=== PATIENT | female | born 1950 | race Caucasian/White ===

== ENCOUNTER → 2016-12-06 | Outpatient (CLI) | payer MEDICARE, OTHER ==
--- NOTE | 2016-12-06 13:01 | CT ---
EXAMINATION TYPE: CT iac wo/w con DATE OF EXAM: 12/06/2016 COMPARISON: CT brain May 11, 2015 HISTORY: Patient complains of inability to taste or smell x2 months. Anosmia. CT DLP: 300 mGycm. Automated Exposure Control for Dose Reduction was Utilized. TECHNIQUE: CT scan of the pituitary gland is performed without and with IV contrast, thin cut axial i mages are obtained, coronal reformatted images are also reviewed. Patient is injected with 100 cc of Omnipaque 300 for the study. FINDINGS: Pituitary gland does not appear suspiciously enlarged in the sella turcica. No suprasellar extension is identified. Pituitary stalk show satisfactory enhancement in the midline seen best coron al image 74. Fairly homogeneous enhancement is noted on CT images. Optic chiasm is not effaced. Adjac ent carotid vessels are patent. Visualized brain parenchyma is unremarkable. Visualized globes are intact bilaterally. Visualized par anasal sinuses show patchy opacification dependently in right maxillary sinus otherwise are clear. Mi ld mucosal thickening inferiorly in bilateral maxillary sinuses is noted. Visualized mastoid air cell s show no suspicious opacification. IMPRESSION: No CT evidence for pituitary macroadenoma or convincing evidence for microadenoma(limitat ions ct vs mri). Incidental acute right maxillary sinus disease is noted.
== END | disposition home or self-care (01) ==
LOC: RADCTMAIN 11:44
PROVIDERS: ATTEND Otolaryngology
DX: R43.0 Anosmia (principal)
CPT/HCPCS: 70482; Q9967

== ENCOUNTER 2018-02-12 10:34 | Day surgery (SDC) | payer MEDICARE, OTHER ==
[2018-02-11 08:44] VITALS: BMI 27.9
[~2018-02-12 10:34] MED LIST: LACTATED RINGERS 1,000 ML IV SCH; LIDOCAINE 1% 20 ML VIAL (10MG/ML) FOR IV START INTRADERMA PRN
[2018-02-12 10:54] VITALS: TEMP 99.2
[2018-02-12] MEDS ORDERED: LACTATED RINGERS 1,000 ML IV ONE (10:55)
[2018-02-12] MEDS ORDERED: ONDANSETRON 4 MG/2 ML VIAL IVP ONE (10:58)
[2018-02-12] MEDS ORDERED: PROPOFOL 10 MG/ML 20 ML VIAL IV ONE (11:23)
--- NOTE | 2018-02-12 12:11 | P.PCN ---
Date of Procedure: 02/12/18 Procedure(s) Performed: Procedure: Total colonoscopy with biopsy. Preoperative diagnosis: Change in bowel habits and history of polyps. Postoperative diagnosis: 1. Diminutive polyp in the rectum biopsied but no large polyps or cancer. 2. No obvious evidence of diverticular disease or inflammatory bowel disease. Preparation: HalfLytely prep. Sedation: Was provided by anesthesia. Brief clinical history: The patient is a 67-year-old female who is scheduled for this evaluation because of recent change in bowel habits. The patient reports difficulty having a bowel movement for several days around the time that she started following a fasting-type diet. The patient has history of polyps and she had colonoscopies in the past, the last could have been around 5 years ago. There is also history of of complicated diverticular disease and she had segmental resection in the sigmoid in the past. Procedure: With the patient on her left lateral decubitus position and after informed consent and adequate sedation, the perianal area was inspected and it did not show any fissures or fistulas. There were no masses felt on digital rectal examination. The Olympus CFQ 160L video colonoscope was then inserted in the rectum in the usual fashion and advanced to the cecum. I intubated the ileocecal valve and examined the terminal ileum as well as. Terminal ileum and colon appeared healthy with no edema, erythema, friability, ulceration, exudation or spontaneous bleeding. There was a diminutive polyp in the rectum which I biopsied but there were no large polyps or cancer. No obvious diverticular disease or other pathology. I retroflexed the endoscope in the rectum before the endoscope was withdrawn. The patient tolerated the procedure well. Plan: The patient was reassured. Discussed dietary measures. She will follow- up with you as planned and I recommended repeat exam in 5 years.
[2018-02-12 12:24] VITALS: BP 119/76; PULSE 65; RESP 16
== END 2018-02-12 13:01 | disposition home or self-care (01) ==
LOC: ORWHC2ENDO 10:34
DX: D12.8 Benign neoplasm of rectum (principal); Z86.010 Personal history of colon polyps; G47.33 Obstructive sleep apnea (adult) (pediatric); K57.92 Diverticulitis of intestine, part unspecified, without perforation or abscess without bleeding; Z86.73 Personal history of transient ischemic attack (TIA), and cerebral infarction without residual deficits; Z79.82 Long term (current) use of aspirin; Z79.899 Other long term (current) drug therapy; Z88.1 Allergy status to other antibiotic agents; Z88.0 Allergy status to penicillin; Z88.8 Allergy status to other drugs, medicaments and biological substances
CPT/HCPCS: 88305; 45380; J2405; J2704

== ENCOUNTER 2018-07-22 10:43 | Day surgery (SDC) | payer MEDICARE, OTHER ==
[2018-07-18 15:49] VITALS: BMI 27.2
[~2018-07-22 10:43] MED LIST changes: -LIDOCAINE 1% 20 ML VIAL (10MG/ML) FOR IV START INTRADERMA PRN
[2018-07-22 11:27] VITALS: RESP 18; TEMP 98.5
[2018-07-22] MEDS ORDERED: LIDOCAINE 1% 20 ML VIAL (10MG/ML) FOR IV START INTRADERMA ONE (11:34)
[2018-07-22] MEDS ORDERED: ONDANSETRON 4 MG/2 ML VIAL IVP ONE (12:02)
[2018-07-22] MEDS ORDERED: PROPOFOL 10 MG/ML 20 ML VIAL IV ONE (12:44)
--- NOTE | 2018-07-22 13:08 | P.PCN ---
Date of Procedure: 07/22/18 Procedure(s) Performed: Procedure: Esophagogastroduodenoscopy and biopsy. Preoperative diagnosis: Epigastric pain. Postoperative diagnosis: 1. Sliding hiatal hernia with no definite esophagitis or complicated reflux disease. 2. Mild antral gastritis. 3. Biopsies obtained from the duodenum, antrum and esophagus. Preparation and sedation: Was provided by anesthesia. Brief clinical history: The patient is a 67-year-old female who was evaluated in the office last month regarding burning upper abdominal pain that started the day after Keysha. She apparently had 5 beers with her grandson Keysha Vallecillo. The patient denied any nausea, vomiting. The pain was doubling her up e very time she eats. She lost 7 pounds. Tums and omeprazole did not help. This evaluation is to assess for peptic ulcer disease or other pathology. Procedure: With the patient on her left lateral decubitus position and after informed consent and adequate sedation, I passed the Olympus-GIF 01/16/1990 video upper endoscope through the cricopharyngeus down the esophagus. GE junction was around 36 cm from the incisors and there was a small sliding hiatal hernia but no obvious esophagitis or complicated reflux disease. The endoscope was then passed into the stomach which was insufflated with air and inspected in detail including the retroflex view in the cardia. There was mottling, erythema, and friability in the prepyloric area but no ulcers, erosions or gastric outlet obstruction. Pyloric channel, duodenal bulb, post bulbar area and descending duodenum appeared within normal limits. I obtained biopsies from the duodenum, antrum and esophagus then the endoscope was withdrawn. The patient tolerated the procedure well. Plan: The patient was reassured. Will await biopsy results and make further plans based on her course and biopsy results. We will keep you updated on her progress.
[2018-07-22 13:29] VITALS: BP 123/72; PULSE 63
== END 2018-07-22 14:04 | disposition home or self-care (01) ==
LOC: ORWHC2ENDO 10:43
DX: K29.50 Unspecified chronic gastritis without bleeding (principal); K44.9 Diaphragmatic hernia without obstruction or gangrene; I10 Essential (primary) hypertension; G47.33 Obstructive sleep apnea (adult) (pediatric); Z91.09 Other allergy status, other than to drugs and biological substances; Z79.899 Other long term (current) drug therapy
CPT/HCPCS: 88305; 43239; J2405; J2704

== ENCOUNTER 2020-07-09 09:44 | Day surgery (SDC) | payer MEDICARE ==
[2020-07-07 10:21] VITALS: BMI 29.5
[~2020-07-09 09:44] MED LIST changes: +LIDOCAINE 1% (10MG/ML) FOR IV START INTRADERMA PRN
[2020-07-09 10:22] VITALS: TEMP 98.6
[2020-07-09] MEDS ORDERED: ONDANSETRON 4 MG/2 ML VIAL ONE (10:48)
[2020-07-09] MEDS ORDERED: ONDANSETRON 4 MG/2 ML VIAL IVP ONE (10:51)
[2020-07-09] MEDS ORDERED: LIDOCAINE 1% INJ 10MG/ML (20 ML MDV) ONE (11:55)
[2020-07-09] MEDS ORDERED: PROPOFOL 10 MG/ML 20 ML VIAL IV ONE (11:55)
--- NOTE | 2020-07-09 12:06 | P.PCN ---
Date of Procedure: 07/09/20 Procedure(s) Performed: BRIEF HISTORY: Patient is a 69-year-old, pleasant, white female, scheduled for an upper endoscopy as a part of evaluation of intermittent dysphagia to solids for the last 6 months duration. PROCEDURE PERFORMED: Esophagogastroduodenoscopy with biopsy. . PREOPERATIVE DIAGNOSIS: intermittent dysphagia to solids of 6 months duration Intermittent dysphagia to solids of 6 months duration sedation per anesthesia. PROCEDURE: After informed consent was obtained, the patient was brought into the endoscopy unit. IV sedation was administered by Anesthesia under continuous monitoring. Initially the Olympus GIF-140 video endoscope was inserted into the mouth. Esophagus intubated without any difficulty. It was gradually advanced into the stomach and duodenum and carefully examined. The bulb and the second part of the duodenum appeared normal. The scope at this time was withdrawn to the stomach, adequately insufflated with air, and upon careful examination, mucosa of the antrum, had mild gastritis and biopsies were done from this area. There was a small gastric polyps noted in the distal body the stomach which were also biopsied. Rest of the body, cardia and the fundus appeared normal. The scope was then withdrawn into the esophagus. sliding type hiatal hernia noted. The GE junction was located at 39 cm from the incisors. The esophagus appeared normal. There were no erosions or ulcerations seen . No evidence of esophageal stricture or Schatzki's ring identified. Biopsies were done from the distal esophagusand the patient tolerated the procedure well. IMPRESSION: 1. Mild antral gastritis all gastric polyp in the distal body the stomach. 2. Small hiatal hernia but no evidence of esophagitis or esophageal stricture. RECOMMENDATIONS: The findings of this examination were discussed with the patient as well as a family. She was advised to follow with the biopsy results. She will be seen in office in 3-4 weeks..
[2020-07-09 12:29] VITALS: BP 150/71; PULSE 70; RESP 20
== END 2020-07-09 12:38 | disposition home or self-care (01) ==
LOC: ORWHC2ENDO 09:44
PROVIDERS: ATTEND Internal Medicine Gastroenterology
DX: K29.60 Other gastritis without bleeding (principal); K20.90 Esophagitis, unspecified without bleeding; K31.7 Polyp of stomach and duodenum; K44.9 Diaphragmatic hernia without obstruction or gangrene; K08.409 Partial loss of teeth, unspecified cause, unspecified class; G47.33 Obstructive sleep apnea (adult) (pediatric); M35.00 Sjogren syndrome, unspecified; Z88.0 Allergy status to penicillin; Z88.1 Allergy status to other antibiotic agents; Z88.5 Allergy status to narcotic agent; Z88.8 Allergy status to other drugs, medicaments and biological substances; Z88.2 Allergy status to sulfonamides; Z79.899 Other long term (current) drug therapy; Z86.79 Personal history of other diseases of the circulatory system; Z91.89 Other specified personal risk factors, not elsewhere classified
CPT/HCPCS: 88305; 43239; J2405; J2001; J2704

== ENCOUNTER → 2020-08-04 | Outpatient (CLI) | payer MEDICARE | END | disposition home or self-care (01) | LOC: LABWHC1 16:08 | PROVIDERS: ATTEND Family Medicine | DX: M79.18 Myalgia, other site (principal); R68.83 Chills (without fever) | CPT/HCPCS: 87502; U0003; C9803 ==

== ENCOUNTER → 2020-11-05 | Outpatient (CLI) | payer MEDICARE ==
--- NOTE | 2020-11-08 11:00 | MM ---
Reason for exam: screening (asymptomatic). Last mammogram was performed 1 year and 4 months ago. History: Patient is postmenopausal. Benign right breast needle localzation of the right breast, June 06, 2011. Benign right breast needle localization ad of the right breast, June 06, 2011. Reductions of both breasts. Took hormonal contraceptives for 1 year. Physical Findings: A clinical breast exam by your physician is recommended on an annual basis and results should be correlated with mammographic findings. MG 3D Screening Mammo W/Cad Bilateral CC and MLO view(s) were taken. Prior study comparison: June 26, 2019, bilateral MG 3d screening mammo w/cad. May 08, 2017, mammogram, performed at [facility]. There are scattered fibroglandular densities. Finding: Architectural distortion in the right breast consistent with known excisional changes. There is no discrete abnormality. ASSESSMENT: Negative, BI-RAD 1 RECOMMENDATION: Routine screening mammogram of both breasts in 1 year.
== END | disposition home or self-care (01) ==
LOC: RADMAMWWP 09:48
PROVIDERS: ATTEND Family Medicine
DX: Z12.31 Encounter for screening mammogram for malignant neoplasm of breast (principal); Z78.0 Asymptomatic menopausal state
CPT/HCPCS: 77063; 77067

== ENCOUNTER → 2021-07-28 | Outpatient (CLI) | payer MEDICARE ==
[2021-07-28 15:03] LABS: ALT 10 U/L (8-44); AST 18 U/L (13-35); LDL Cholesterol,Calculated 100.6 mg/dL (0.0-131.0)
[2021-07-28 15:04] LABS: HCT 38.6 % (37.2-46.3); HGB 12.5 g/dL (12.0-15.0); MCH 32.6 pg (27.0-32.0); MCHC 32.4 g/dL (32.0-37.0); MCV 100.8 fL (80.0-97.0); Mean Platelet Volume 10.7 fL (9.5-12.2); NRBC Per 100 WBC 0 /100 WBCS (0.0-0.0); Platelet Count 210 X 10*3/uL (140-440); RBC 3.83 X 10*6/uL (4.10-5.20); RDW 12.8 % (11.5-14.5); WBC 5.68 X 10*3/uL (4.50-10.00)
[2021-07-29 01:45] LABS: African American GFR (CKD) 108.5 (60.0-200.0); Anion Gap 19.6 mmol/L (10.00-18.00); BUN/Creat Ratio 15.5 Ratio (12.00-20.00); Blood Urea Nitrogen 9.3 mg/dL (9.0-27.0); Calcium 9.3 mg/dL (8.7-10.3); Carbon Dioxide 18.4 mmol/L (20.0-27.5); Non-African American GFR(CKD) 93.7 (60.0-200.0); Potassium 4.1 mmol/L (3.5-5.5)
== END | disposition home or self-care (01) ==
LOC: LABWHC1 09:31
PROVIDERS: ATTEND Nurse Practitioner Family
DX: E78.2 Mixed hyperlipidemia (principal); R00.2 Palpitations
CPT/HCPCS: 36415; 80048; 80061; 84443; 84450; 84460; 85027

== ENCOUNTER → 2021-09-13 | Outpatient (CLI) | payer MEDICARE ==
[2021-09-14 14:10] LABS: Coronavirus SARS CoV-2 Detected (Not Detected)
== END | disposition home or self-care (01) ==
LOC: LABWHC1 13:55
PROVIDERS: ATTEND Family Medicine
DX: R50.9 Fever, unspecified (principal)
CPT/HCPCS: U0003; C9803

== ENCOUNTER → 2021-09-16 | Outpatient (CLI) | payer MEDICARE ==
[~2021-09-16] MED LIST changes: +BEBTELOVIMAB (EUA) 175 MG/2 ML VIAL IV ONE; -LACTATED RINGERS 1,000 ML IV SCH; -LIDOCAINE 1% (10MG/ML) FOR IV START INTRADERMA PRN; +SODIUM CHLORIDE 0.9% 500 ML 500 ML in EMPTY BAG 1 BAG IV PRN
[2021-09-16 13:29] VITALS: TEMP 98.2
[2021-09-16 14:34] VITALS: BP 121/77; PULSE 62; RESP 16
== END | disposition home or self-care (01) ==
LOC: PROCWHC3 13:19
PROVIDERS: ATTEND Family Medicine
DX: U07.1 COVID-19 (principal)
CPT/HCPCS: 96361; 96374; Q0222; M0245

== ENCOUNTER → 2021-11-07 | Outpatient (CLI) | payer MEDICARE ==
--- NOTE | 2021-11-08 19:07 | MM ---
Reason for Exam: Screening (asymptomatic). Last screening mammogram was performed 12 month(s) ago. Patient History: Menarche at age 15. First Full-Term at age 23. Left ovary removed at age 42. Right ovary removed at age 42. Hysterectomy at age 42. Postmenopausal. Bilateral Reduction. 06/06/2011, Benign Excisional Biopsy on the right side. 06/06/2011, Benign Excisional Biopsy on the right side. Risk Values: Ruby 5 year model risk: 2.3%. NCI Lifetime model risk: 7.4%. Film Views: Bilateral CC views were taken. Bilateral MLO views were taken. Prior Study Comparison: 05/08/2017 Screening Mammogram, [facility]. 06/26/2019 Bilateral Screening Mammogram, [facility]. 11/05/2020 Bilateral Screening Mammogram, [facility]. Tissue Density: The breast tissue is heterogeneously dense. This may lower the sensitivity of mammography. Findings: Analyzed By CAD. Multiple asymmetric density in the left breast especially on the MLO view remain unchanged especially when the posterior densities are compared to the 2019 exam. No significant change from prior exams. Overall Assessment: Benign, BI-RAD 2 Management: Screening Mammogram of both breasts in 1 year. A clinical breast exam by your physician is recommended on an annual basis and results should be correlated with mammographic findings. Also, the patient should continue monthly self breast exams. Electronically signed and approved by: Martin Taylor M.D. Radiologist
== END | disposition home or self-care (01) ==
LOC: RADMAMWWP 07:49
PROVIDERS: ATTEND Family Medicine
DX: Z12.31 Encounter for screening mammogram for malignant neoplasm of breast (principal)
CPT/HCPCS: 77063; 77067

== ENCOUNTER → 2022-11-29 | Outpatient (CLI) | payer MEDICARE ==
--- NOTE | 2022-11-30 08:40 | MM ---
Reason for Exam: Screening (asymptomatic). Last mammogram was performed 1 year(s) and 1 month(s) ago. Patient History: Menarche at age 15. First Full-Term at age 23. Left ovary removed at age 42. Right ovary removed at age 42. Hysterectomy at age 42. Postmenopausal. Bilateral Reduction. 06/06/2011, Benign Excisional Biopsy on the right side. 06/06/2011, Benign Excisional Biopsy on the right side. Sister had ovarian cancer under age 50. Risk Values: Ruby 5 year model risk: 2.3%. NCI Lifetime model risk: 6.7%. Prior Study Comparison: 04/11/2016 Screening Mammogram, [facility]. 05/08/2017 Screening Mammogram, [facility]. 06/26/2019 Bilateral Screening Mammogram, [facility]. 11/05/2020 Bilateral Screening Mammogram, [facility]. 11/07/2021 Bilateral MG 3D screening mammo w/cad, [facility]. Tissue Density: The breast tissue is heterogeneously dense. This may lower the sensitivity of mammography. Findings: Analyzed By CAD. There is no suspicious group of microcalcifications or new suspicious mass in either breast. Benign calcifications within the left breast. Stable multiple asymmetric densities within the left breast. Overall Assessment: Benign, BI-RAD 2 Management: Screening Mammogram of both breasts in 1 year. A clinical breast exam by your physician is recommended on an annual basis and results should be correlated with mammographic findings. Note on Ruby scores and lifetime risk: 1. A Ruby score greater than 3% is considered moderate risk. If this is the case, consider specialist referral to assess eligibility for a risk reducing agent. If overall lifetime risk for the development of breast cancer is 20% or higher, the patient may qualify for future screening with alternating mammogram and breast MRI. Electronically signed and approved by: Moses Harris D.O.
== END | disposition home or self-care (01) ==
LOC: RADMAMWWP 13:34
PROVIDERS: ATTEND Internal Medicine
DX: Z12.31 Encounter for screening mammogram for malignant neoplasm of breast (principal); Z78.0 Asymptomatic menopausal state; Z80.41 Family history of malignant neoplasm of ovary
CPT/HCPCS: 77063; 77067

== ENCOUNTER → 2023-01-30 | Outpatient (CLI) | payer MEDICARE ==
[2023-01-30 15:46] LABS: African American GFR (CKD) >90 (>60 ml/min/1.73 sqM); Blood Urea Nitrogen 12 mg/dL (7-17); Non-African American GFR(CKD) 90 (>60 ml/min/1.73 sqM)
--- NOTE | 2023-01-30 17:11 | CT ---
EXAMINATION TYPE: CT chest w con CT DLP: 355.6 mGycm, Automated exposure control for dose reduction was used. DATE OF EXAM: 01/30/2023 4:33 PM COMPARISON: CT chest 08/11/2013 CLINICAL INDICATION:Female, 72 years old with history of M35.09 SJOGREN SYNDROME WITH OTHER ORGAN INV OLVEME; PHH, SJOGREN SYNDROME TECHNIQUE: Multiple axial images were obtained through the chest following the administration of 100 cc of Isovue 300. . Coronal and sagittal reformats reviewed. FINDINGS: LUNGS/ PLEURA: No pleural effusion, pneumothorax, focal consolidation. No suspicious pulmonary nodule or mass. AIRWAY: Patent and unremarkable.. HEART: Size within normal limits. No pericardial effusion. MEDIASTINUM: No gross evidence of adenopathy. VASCULATURE: No aortic aneurysm. MUSCULOSKELETAL: No acute osseous abnormalities. Multilevel Schmorl's nodes. Mild right shoulder arth ropathy. SOFT TISSUES/LYMPH NODES: Unremarkable. LOWER NECK: No significant findings. UPPER ABDOMEN: Postcholecystectomy changes. IMPRESSION: No acute thoracic process. No evidence of pulmonary nodule or mass.
== END | disposition home or self-care (01) ==
LOC: RADCTMAIN 14:56
PROVIDERS: ATTEND Internal Medicine
DX: M35.09 Sjogren syndrome with other organ involvement (principal)
CPT/HCPCS: 82565; 84520; 71260; 36415; Q9967

== ENCOUNTER 2023-02-21 10:35 | Day surgery (SDC) | payer MEDICARE ==
[~2023-02-21 10:35] MED LIST changes: -BEBTELOVIMAB (EUA) 175 MG/2 ML VIAL IV ONE; +LACTATED RINGERS 1,000 ML IV SCH; +LIDOCAINE 1% (10MG/ML) FOR IV START INTRADERMA PRN; -SODIUM CHLORIDE 0.9% 500 ML 500 ML in EMPTY BAG 1 BAG IV PRN
[2023-02-21] MEDS ORDERED: LACTATED RINGERS 1,000 ML IV ONE (11:09)
[2023-02-21 11:16] VITALS: TEMP 97.8
[2023-02-21] MEDS ORDERED: ONDANSETRON 4 MG/2 ML VIAL IVP ONE (11:33)
[2023-02-21] MEDS ORDERED: LIDOCAINE 2% INJ 20 MG/ML (2 ML VIAL) ONE (12:15)
[2023-02-21] MEDS ORDERED: PROPOFOL 10 MG/ML 20 ML VIAL IV ONE (12:15)
--- NOTE | 2023-02-21 12:29 | P.PCN ---
Date of Procedure: 02/21/23 Procedure(s) Performed: BRIEF HISTORY: Patient is a 72-year-old pleasant white female scheduled for an elective colonoscopy as a part of evaluation change in bowel habits. PROCEDURE PERFORMED: Colonoscopy. PREOPERATIVE DIAGNOSIS: Change in bowel habits. IV sedation per Anesthesia. PROCEDURE: After informed consent was obtained, the patient, was brought into the endoscopy unit. IV sedation was administered by Anesthesia under continuous monitoring. Digital rectal examination was normal. Initially the Olympus CF-160 flexible video colonoscope was then inserted in the rectum, gradually advanced into the cecum without any difficulty. Careful examination was performed as the scope was gradually being withdrawn. Ileocecal valve and the appendiceal orifice were visualized and appeared normal. Prep was excellent. Mucosa of the cecum, ascending colon, transverse colon, descending colon, sigmoid colon, and rectum appeared normal. Retroflexion was performed in the rectum and no lesions were seen. The patient tolerated the procedure well. IMPRESSION: Normal-appearing colon from rectum to cecum with no evidence of colorectal neoplasia. RECOMMENDATIONS: Findings of this examination were discussed with the patient as well as a family.. She was advised to be a high-fiber diet and take fiber supplements a regular basis. Recommend repeat screening colonoscopy in 10 years.
[2023-02-21 12:40] VITALS: RESP 16
[2023-02-21 12:53] VITALS: BP 135/88; PULSE 78
== END 2023-02-21 13:07 | disposition home or self-care (01) ==
LOC: ORWHC2ENDO 10:35
PROVIDERS: ATTEND Internal Medicine Gastroenterology
DX: R19.4 Change in bowel habit (principal); G47.33 Obstructive sleep apnea (adult) (pediatric); I49.9 Cardiac arrhythmia, unspecified; I08.9 Rheumatic multiple valve disease, unspecified; M19.90 Unspecified osteoarthritis, unspecified site; I73.9 Peripheral vascular disease, unspecified; I69.312 Visuospatial deficit and spatial neglect following cerebral infarction; M35.00 Sjogren syndrome, unspecified; Z79.899 Other long term (current) drug therapy
CPT/HCPCS: J2405; J2704; J2001; G0121; 45378

== ENCOUNTER → 2023-10-27 | Outpatient (CLI) | payer MEDICARE ==
[2023-10-27 13:13] LABS: Basophils # (A) 0.04 X 10*3/uL (0.00-0.10); Basophils % (A) 0.6 %; Eosinophils # (A) 0.07 X 10*3/uL (0.04-0.35); Eosinophils % (A) 1.1 %; HGB 13.3 g/dL (12.0-15.0); Lymphocytes # (A) 1.69 X 10*3/uL (0.90-5.00); Lymphocytes % (A) 26.3 %; MCH 31.4 pg (27.0-32.0); MCHC 32.4 g/dL (32.0-37.0); MCV 96.9 FL (80.0-97.0); Mean Platelet Volume 10.3 FL (9.5-12.2); Monocytes # (A) 0.57 X 10*3/uL (0.20-1.00); Monocytes % (A) 8.9 %; NRBC Per 100 WBC 0 X 10*3/uL (0.00-0.01); Neutrophils # (A) 4.04 X 10*3/uL (1.80-7.70); Neutrophils % (A) 62.9 %; Platelet Count 247 X 10*3/uL (140-440); RBC 4.23 X 10*6/uL (4.10-5.20); RDW 12.8 % (11.5-14.5); WBC 6.42 X 10*3/uL (4.50-10.00)
[2023-10-27 13:26] LABS: ALT 22 U/L (8-44); AST 24 U/L (13-35); Albumin 4.4 g/dL (3.8-4.9); Albumin/Globulin Ratio 1.69 Ratio (1.60-3.17); Alkaline Phosphatase 80 U/L (41-126); BUN/Creat Ratio 13.25 Ratio (12.00-20.00); Blood Urea Nitrogen 10.6 mg/dL (9.0-27.0); Calcium 9.6 mg/dL (8.7-10.3); Chloride 100 mmol/L (96-109); Globulin 2.6 g/dL (1.6-3.3); Glucose 93 mg/dL (70-110); Potassium 4.5 mmol/L (3.5-5.5); Sodium 138 mmol/L (135-145); Total Bilirubin 0.3 mg/dL (0.3-1.2)
[2023-10-29 13:25] LABS: Gliadin AB IgA, Deaminated Negative (Negative); Gliadin AB IgA, Unit 1.8 U/mL; Gliadin AB IgG, Deaminated Negative (Negative); Gliadin AB IgG, Unit <0.4 U/mL
== END | disposition home or self-care (01) ==
LOC: LABWHC1 09:23
PROVIDERS: ATTEND Nurse Practitioner Family
DX: K52.9 Noninfective gastroenteritis and colitis, unspecified (principal)
CPT/HCPCS: 36415; 80053; 83516; 85025

== ENCOUNTER → 2023-12-05 | Outpatient (CLI) | payer MEDICARE ==
--- NOTE | 2023-12-06 10:33 | MM ---
Reason for Exam: Screening (asymptomatic). Last screening mammogram was performed 12 month(s) ago. Patient History: Menarche at age 15. First Full-Term at age 23. Left ovary removed at age 42. Right ovary removed at age 42. Hysterectomy at age 42. Postmenopausal. Bilateral Reduction. 06/06/2011, Benign Excisional Biopsy on the right side. 06/06/2011, Benign Excisional Biopsy on the right side. Sister had ovarian cancer under age 50. Risk Values: Ruby 5 year model risk: 2.3%. NCI Lifetime model risk: 6.4%. Prior Study Comparison: 04/11/2016 Screening Mammogram, [facility]. 05/08/2017 Screening Mammogram, [facility]. 06/26/2019 Bilateral Screening Mammogram, [facility]. 11/05/2020 Bilateral Screening Mammogram, [facility]. 11/07/2021 Bilateral MG 3D screening mammo w/cad, [facility]. 11/29/2022 Bilateral MG 3D screening mammo w/cad, [facility]. Tissue Density: The breasts are heterogeneously dense, which may obscure small masses. Findings: Analyzed By CAD. There is no suspicious group of microcalcifications or new suspicious mass in either breast. Overall Assessment: Benign, BI-RAD 2 Management: Screening Mammogram of both breasts in 1 year. . Patient should continue monthly self-breast exams. A clinical breast exam by your physician is recommended on an annual basis. This exam should not preclude additional follow-up of suspicious palpable abnormalities. Note on Ruby scores and lifetime risk: 1. A Ruby score greater than 3% is considered moderate risk. If this is the case, consider specialist referral to assess eligibility for a risk reducing agent. 2. If overall lifetime risk for the development of breast cancer is 20% or higher, the patient may qualify for future screening with alternating mammogram and breast MRI. Electronically signed and approved by: Hung Wilson M.D. Radiologis
== END | disposition home or self-care (01) ==
LOC: RADMAMWWP 11:17
PROVIDERS: ATTEND Internal Medicine
DX: Z12.31 Encounter for screening mammogram for malignant neoplasm of breast (principal); Z78.0 Asymptomatic menopausal state
CPT/HCPCS: 77063; 77067

== ENCOUNTER → 2024-09-15 | Outpatient (CLI) | payer MEDICARE ==
[2024-09-15 13:03] VITALS: BP 141/66; PULSE 74; RESP 16; TEMP 98.1
--- NOTE | 2024-09-15 15:25 | P.PAINPG ---
Objective - Vital Signs Vital signs: Vital Signs Temp 98.1 F 09/15/24 12:58 Pulse 74 09/15/24 12:58 Resp 16 09/15/24 12:58 BP 141/66 09/15/24 12:58 Pulse Ox FiO2 Intake & Output 09/14/24 09/15/24 09/15/24 18:59 06:59 18:59 Weight 78.471 kg PQRS Measure Charge Sheet Mode of Arrival: Ambulatory Comment: HISTORY OF PRESENT ILLNESS: A 73 yr old female presents today w severe and chronic LBP > 5 yrs secondary to radiculopathy, spondylosis and facet arthropathy without myelopathy for evaluation. Pt states pain level is provoked at 7 /10 in intensity, constant, localized in the lumbar spine, predominantly axial, achy in character w occasional shooting pain towards the LLE. Pain is provoked by over activity and PT x 5 wks which is causing intractable pain. She also cannot afford the out of pocket costs of PT any longer. Pain is alleviated by PT x 5 wks (Jul - Aug 2024), medications, heat, ice, manual massage, repositioning and rest . Oswestry axial pain score at 32. PMH: OA, Fibromyalgia, Hyperlipidemia, HTN, MANJINDER, Sjogren's Disease, MDD/ Anxiety PSH: Colonoscopy (2022), EGD (2020), Appendectomy, Back Surgery, LapBand and Removal, Bowel Resection, Breast Surgery, Cholecystectomy, Hysterectomy, Tonsillectomy, Tubal Ligation SH: Former tobacco user, Rare ETOH use, No illicit drug use FH: Non contributory All: See list Meds: See list incl Ibu REVIEW OF ORGAN SYSTEMS: CONSTITUTIONAL: No fevers or chills. No recent weight loss. NEUROLOGICAL: + numbness and tingling along the distal extremities. No seizure disorders or headaches. MUSCULOSKELETAL: + pain PSYCHIATRIC: Denies current depression or suicidal thoughts. Physical Examinations : Constitutional : Cooperative , not in acute distress . Neurologic : Cranial nerve II to XII intact. No focal neurological deficits. Psychiatric : alert & oriented x 3. Matching mood & appropriate affect. Judgment & insight intact. Musculoskeletal : Cervical Spine Motor strength in the deltoid and biceps: Normal right side. Normal Left side Motor strength biceps and the wrist extensors: Normal right side . Normal left side Motor strength in the triceps muscle: Normal right side. Normal left side Deep tendon reflexes: Normal at the biceps. Normal at Brachioradialis. Normal at triceps Vertebral body tenderness to deep palpation over Cervical facet loading test: positive bilaterally Spurling test: positive bilaterally Neck distraction test: positive bilaterally Ivett sign: positive bilaterally Lumbar spine Motor strength lower extremities ,thigh and legs 5/5 Right side , 5/5 Left side Deep tendon reflexes : Normal Knee Jerk. Normal Ankle Jerk Vertebral body tenderness over Cherry Test positive Lumbar facet Loading Test: positive Right / positive Left Range of motion of the lumbar spine Flexion 30 degrees, extension 10 degrees Straight Leg Raise test: Left/ Right positive at degrees Wild test: positive right / positive left. Severe tenderness over the Sacroiliac joint on the Right / Left sides Gaenslen test: positive bilaterally Seated flexion test: positive bilaterally. Sacral spine : Severe tenderness over the Sacroiliac joint: right side / left side Range of motion: Flexion of the lumbar spine <60 degrees Range of motion: Extension of the lumbar spine <20 degrees Gaenslen's Test positive Wild test: positive right side / left side Thigh Thrust Test Sacral Thrust Test Imaging: X ray lumbar spine from 08/04/24 reviewed Assessment/ Plan : Lumbar radiculopathy Recommendation of MRI non contrast lumbar spine M54.16 . All questions answered. I have spent greater than 30 minutes on patient care today. Dr Mcfadden was available by phone for the evaluation of this patient. The time was used to review the medical records including relevant urine studies and Prescription history (MAPs), review of the available imaging, evaluation and examination of the patient, coordination of care with the medical staff and if applicable referring physicians, as well as creation of the medical record - Pain Location Left Thigh Non-Pharmacological Interventions: Heat, Ice, Physical Therapy Pharmacological Interventions: Medication PQRS Narrative: Smoking Status Former smoker Blood Pressure 141/66 Pain Intensity [Left Thigh] 8 Scale Used Numeric (1 - 10) Home Medications: Ambulatory Orders Cod Liver Oil 1 each PO DAILY 07/07/20 Vit C/E/Zn/Coppr/Lutein/Zeaxan [Preservision Areds 2 Softgel] 1 each PO DAILY 07/07/20 Citalopram Hydrobromide [Citalopram HBr] 20 mg PO DAILY 02/16/23 Cyanocobalamin (Vitamin B-12) [Vitamin B-12] 1,000 mcg PO DAILY 02/16/23 Multivitamins, Thera [Multivitamin (formulary)] 1 tab PO DAILY 02/16/23 Psyllium Husk (with Sugar) [Metamucil Fiber Thin] 2 gm PO DAILY 02/16/23 clonazePAM [Clonazepam] 0.5 mg PO HS 02/16/23 valACYclovir HCL [Valtrex] 500 mg PO DAILY 02/16/23 Controlled Substance Measures - Controlled Substance Measures Is patient prescribed a controlled substance at discharge?: No
== END ==
LOC: PNWHC3 12:45
PROVIDERS: ATTEND Specialist
DX: M54.16 Radiculopathy, lumbar region (principal); Z87.891 Personal history of nicotine dependence; Z86.59 Personal history of other mental and behavioral disorders; Z88.8 Allergy status to other drugs, medicaments and biological substances; Z88.1 Allergy status to other antibiotic agents; Z88.2 Allergy status to sulfonamides; Z88.0 Allergy status to penicillin; Z88.5 Allergy status to narcotic agent; Z88.6 Allergy status to analgesic agent
CPT/HCPCS: 99211

== ENCOUNTER → 2024-09-24 | Outpatient (CLI) | payer MEDICARE ==
--- NOTE | 2024-09-27 21:21 | MR ---
EXAMINATION TYPE: MR lumbar spine wo con DATE OF EXAM: 09/24/2024 10:47 AM COMPARISON: None. CLINICAL INDICATION: Female, 73 years old with history of M54.16 RADICULOPATHY, LUMBAR REGION, Low ba ck pain into left leg, Hx of back surgery TECHNIQUE: Multiplanar, multisequence images of the lumbar spine were acquired. IV Contrast: mL (None, if empty) FINDINGS: Cord ends at the L1-L2 level. L5-S1: No focal disc herniation or significant disc bulge. No spinal canal stenosis. Neural foramen are patent. Mild facet degenerative change is present L4-L5: No focal disc herniation or significant disc bulge. No spinal canal stenosis. Neural foramen are patent. There is a left hemilaminectomy. Facet degenerative changes present. There is disc reina ccation present. L3-L4: No focal disc herniation or significant disc bulge. No spinal canal stenosis. Mild right fora robert narrowing is present. Mild ligamentum flavum laxity is present. Mild facet hypertrophy is prese nt L2-L3: No focal disc herniation or significant disc bulge. No spinal canal stenosis. Neural foramen are patent. L1-L2: No focal disc herniation or significant disc bulge. No spinal canal stenosis. Neural foramen are patent. T12-L1: No focal disc herniation or significant disc bulge. No spinal canal stenosis. Neural forame n are patent. IMPRESSION: 1. Post left hemilaminectomy L4. No spinal canal stenosis. 2. Mild facet degenerative changes L3-4 through L5-S1 [facility], , 09/27/2024 9:18 PM
== END | disposition home or self-care (01) ==
LOC: RADMRIMAIN 09:42
PROVIDERS: ATTEND Specialist
DX: M47.27 Other spondylosis with radiculopathy, lumbosacral region (principal); M96.1 Postlaminectomy syndrome, not elsewhere classified
CPT/HCPCS: 72148

== ENCOUNTER → 2024-10-23 | Outpatient (CLI) | payer MEDICARE ==
[2024-10-23 11:40] VITALS: BP 119/77; PULSE 79; RESP 16
--- NOTE | 2024-10-23 14:52 | P.PAINPG ---
Objective - Vital Signs Vital signs: Vital Signs Temp Pulse 79 10/23/24 11:33 Resp 16 10/23/24 11:33 BP 119/77 10/23/24 11:33 Pulse Ox 99 10/23/24 11:33 FiO2 Intake & Output 10/22/24 10/23/24 10/23/24 18:59 06:59 18:59 Weight 79.379 kg PQRS Measure Charge Sheet Mode of Arrival: Ambulatory Comment: HISTORY OF PRESENT ILLNESS: A 73 yr old female presents today w severe and chronic LBP > 5 yrs secondary to failed post L L4 hemilaminectomy for evaluation. Pt states pain level is provoked at 7 /10 in intensity, constant, localized in the lumbar spine, predominantly axial, achy in character without shooting pain. Pain is provoked by over activity and PT x 5 wks which is causing intractable pain. She also cannot afford the out of pocket costs of PT any longer. Pain is alleviated by PT x 5 wks (Jul - Aug 2024), physician guided home stretching regimen daily since Aug 2024, medications, heat, ice, manual massage, repositioning and rest . Interventional procedures include Medications include Aleve, Ibu REVIEW OF ORGAN SYSTEMS: CONSTITUTIONAL: No fevers or chills. No recent weight loss. NEUROLOGICAL: + numbness and tingling along the distal ex tremities. No seizure disorders or headaches. MUSCULOSKELETAL: + pain PSYCHIATRIC: Denies current depression or suicidal thoughts. Physical Examinations : Constitutional : Cooperative , not in acute distress . Neurologic : Cranial nerve II to XII intact. No focal neurological deficits. Psychiatric : alert & oriented x 3. Matching mood & appropriate affect. Judgment & insight intact. Musculoskeletal : Cervical Spine Motor strength in the deltoid and biceps: Normal right side. Normal Left side Motor strength biceps and the wrist extensors: Normal right side . Normal left side Motor strength in the triceps muscle: Normal right side. Normal left side Deep tendon reflexes: Normal at the biceps. Normal at Brachioradialis. Normal at triceps Vertebral body tenderness to deep palpation over Cervical facet loading test: positive bilaterally Spurling test: positive bilaterally Neck distraction test: positive bilaterally Ivett sign: positive bilaterally Lumbar spine Motor strength lower extremities ,thigh and legs 5/5 Right side , 5/5 Left side Deep tendon reflexes : Normal Knee Jerk. Normal Ankle Jerk Vertebral body tenderness over L4 Cherry Test positive L L3-L4/ L5-S1 Lumbar facet Loading Test: positive Right / positive Left Range of motion of the lumbar spine Flexion 30 degrees, extension 10 degrees Straight Leg Raise test: Left/ Right positive at degrees Wild test: positive right / positive left. Severe tenderness over the Sacroiliac joint on the Right / Left sides Gaenslen test: positive bilaterally Seated flexion test: positive bi laterally. Sacral spine : Severe tenderness over the Sacroiliac joint: right side / left side Range of motion: Flexion of the lumbar spine <60 degrees Range of motion: Extension of the lumbar spine <20 degrees Gaenslen's Test positive Wild test: positive right side / left side Thigh Thrust Test Sacral Thrust Test Imaging: X ray lumbar spine from 08/04/24 reviewed MRI non contrast lumbar spine from 09/24/24 reviewed Assessment/ Plan : failed post L L4 hemilaminectomy Recommendation of L MBB L3-L4/ L5-S1 #1. Risks, benefits of procedure discussed and patient verbalized understanding. Minimal anesthesia including Fentanyl and Versed if clinically indicated. All questions answered. I have spent greater than 30 minutes on patient care today. Dr Mcfadden was available by phone for the evaluation of this patient. The time was used to review the medical records including relevant urine studies and Prescription history (MAPs), review of the available imaging, evaluation and examination of the patient, coordination of care with the medical staff and if applicable ref erring physicians, as well as creation of the medical record - Pain Location Bilateral Lower Back Non-Pharmacological Interventions: Heat, Ice, Inactivity Pharmacological Interventions: Block, PRN Medication, Topical Medication PQRS Narrative: Smoking Status Former smoker Blood Pressure 119/77 Pain Intensity [Bilateral 9 Lower Back] Scale Used Numeric (1 - 10) Hx Alcohol Use (MH) No Home Medications: Ambulatory Orders Vit C/E/Zn/Coppr/Lutein/Zeaxan [Preservision Areds 2 Softgel] 1 each PO DAILY 07/07/20 Citalopram Hydrobromide [Citalopram HBr] 20 mg PO DAILY 02/16/23 Cyanocobalamin (Vitamin B-12) [Vitamin B-12] 1,000 mcg PO DAILY 02/16/23 Multivitamins, Thera [Multivitamin (formulary)] 1 tab PO DAILY 02/16/23 valACYclovir HCL [Valtrex] 500 mg PO DAILY 02/16/23 Controlled Substance Measures - Controlled Substance Measures Is patient prescribed a controlled substance at discharge?: No
== END ==
LOC: PNWHC3 11:14
PROVIDERS: ATTEND Specialist
DX: M96.1 Postlaminectomy syndrome, not elsewhere classified (principal); G89.29 Other chronic pain; Z88.1 Allergy status to other antibiotic agents; Z88.2 Allergy status to sulfonamides; Z88.8 Allergy status to other drugs, medicaments and biological substances; Z87.891 Personal history of nicotine dependence
CPT/HCPCS: 99211

== ENCOUNTER 2024-12-05 10:38 | Day surgery (SDC) | payer MEDICARE ==
[2024-12-04 08:44] VITALS: BMI 28.8
[2024-12-05 11:05] VITALS: TEMP 96.1
[2024-12-05] MEDS: IV FLUID CONTINUATION 1,000 ML IV ONE ×2 (11:13→12:28)
[2024-12-05] MEDS: LACTATED RINGERS 1,000 ML IV SCH (11:15)
[2024-12-05] MEDS ORDERED: fentaNYL (PF) 50 MCG/ML 2 ML AMP ONE (12:07)
[2024-12-05] MEDS ORDERED: ONDANSETRON 4 MG/2 ML VIAL ONE (12:07)
[2024-12-05] MEDS ORDERED: MIDAZOLAM 2 MG/2 ML VIAL ONE (12:07)
[2024-12-05] MEDS ORDERED: ROPIVACAINE 5 MG/ML 30 ML VIAL ONE (12:07)
--- NOTE | 2024-12-05 12:26 | P.PCN ---
Date of Procedure: 12/05/24 Procedure(s) Performed: PREOPERATIVE DIAGNOSIS : 1- Lumbar spondylosis with Facet Arthropathy without myelopathy . 2- Lumber radiculopathy POSTOPERATIVE DIAGNOSIS: 1- Lumbar spondylosis with Facet Arthropathy without myelopathy . 2- Lumber radiculopathy PROCEDURE: Diagnostic bilateral L3 , L4 , and L5 medial branch block under fluoroscopy guidance(fluoroscopy images available in the radiology Department ) ( To target the facet joint between Bilateral L4-5 , and L5- S1 ) ANESTHESIA: moderate sedation with intravenous Versed 2 mg and Fentanyl 100 mcg.(Sedation start time 12:07, end time 12:18 ) EBL: Minimal COMPLICATION: None PROCEDURE INDICATION: Chronic low back pain secondary to Facet arthropathy unresponsive to conservative treatment. PROCEDURE DESCRIPTION: the patient was seen and identified in the preop holding area , risks and benefits and possible complications of the procedure and alternative were discussed with the patient, and the patient agreed to proceed with the procedure and signed the consent and vital signs monitored during the procedure and fluoroscopy was used to maximize the benefit and accuracy of the needle placement, and sedation was given to decrease patient anxiety, patient was taken to the procedure room and placed in prone position vital signs monitored in the back prepped with chlorhexidine X3 then under strict sterile technique using a right oblique fluoroscopy ,the junction of the transverse process and the superior articulating process of the right L3 , L4 , and L5 vertebra which corresponding to the fluoroscopy image of the eye of the Carson dog on the block side for the medial branches and subsequently , after local infiltration of skin and subcu tissuies with Ropivacaine 0.5 % , one mL at each level ,then 23-gauge Quincke-type needles , 3 needle was used , each one of them placed at the junction of the base of the transverse process and the superior articular process at the appropriate level, and the needle was advanced until the periosteum contacted, needle placement confirmed with AP oblique and lateral view and after appropriate needle placement confirmed, and after negative aspiration for heme and CSF and there was no paresthesia 1-1/2 mL of Ropivacaine 0.5% , then half mL injected at each level after negative aspiration the needle subsequently removed and the same procedure repeated for the left side at left side at L3 , L4 and L5 levels. At the end of the procedure and the needles removed and a bandage applied after the skin was cleaned the cleaning solution patient taken to recovery room in stable condition and monitors in the recovery room for 20-30 minutes and discharged home in stable condition after discharge criteria met and patient will follow up with the pain clinic in 2-4 weeks note= patient was scheduled to have diagnostic medial branch block on the left side only, but in the preop holding area after discussed with the patient her pain level, and the pain location she reported that most of her pain on the left side, but also she had some pain on the right side and I discussed with her the option of doing bilateral medial branch block .
--- NOTE | 2024-12-05 12:36 | FL ---
EXAMINATION TYPE: FL guided pain mgmt statistic DATE OF EXAM: 12/05/2024 12:25 PM COMPARISON: Pre Operative Images if available both CT/MRI or plain film CLINICAL INDICATION: Female, 74 years old with history of Lumbar Facet Blk; TECHNIQUE: FL guided pain mgmt statistic, multiple fluoroscopic images provided for procedure. DAP: 0.49124 mGym2 Gycm2 uGym2 cGycm2 or equivalent. FINDINGS: Fluoroscopic images during injection for pain management demonstrate multilevel degeneration changes throughout the spine. No evidence for fracture. No acute process identified. IMPRESSION: 1. No evidence for intraoperative complication. 2. Please see the operative/procedural note for further details. [facility], , 12/05/2024 12:34 PM
[2024-12-05 12:46] VITALS: BP 139/95; PULSE 60; RESP 16
== END 2024-12-05 12:56 | disposition home or self-care (01) ==
LOC: ORPAIN 10:38
PROVIDERS: ATTEND Specialist
DX: M47.26 Other spondylosis with radiculopathy, lumbar region (principal); L23.3 Allergic contact dermatitis due to drugs in contact with skin; Z88.0 Allergy status to penicillin; Z88.1 Allergy status to other antibiotic agents; Z88.2 Allergy status to sulfonamides; Z88.5 Allergy status to narcotic agent; Z88.8 Allergy status to other drugs, medicaments and biological substances
CPT/HCPCS: 64493; 64494; J2250; J2405; J3010; J2795; 99152

== ENCOUNTER → 2025-01-07 | Outpatient (CLI) | payer MEDICARE ==
--- NOTE | 2025-01-07 16:27 | MM ---
Reason for Exam: Screening (asymptomatic). Last mammogram was performed 1 year(s) and 1 month(s) ago. Patient History: Menarche at age 15. First Full-Term at age 23. Left ovary removed at age 42. Right ovary removed at age 42. Hysterectomy at age 42. Postmenopausal. Bilateral Reduction. 06/06/2011, Benign Excisional Biopsy on the right side. 06/06/2011, Benign Excisional Biopsy on the right side. Sister had ovarian cancer under age 50. Risk Values: Ruby 5 year model risk: 2.4%. NCI Lifetime model risk: 6.1%. Prior Study Comparison: 11/07/2021 Bilateral MG 3D screening mammo w/cad, [facility]. 11/29/2022 Bilateral MG 3D screening mammo w/cad, [facility]. 12/05/2023 Bilateral MG 3D screening mammo w/cad, [facility]. Tissue Density: There are scattered areas of fibroglandular density. Findings: Analyzed By CAD. Right breast: There is no suspicious group of microcalcifications or new suspicious mass. Left breast: There is no suspicious group of microcalcifications or new suspicious mass. Overall Assessment: Negative, BI-RAD 1 Management: Screening Mammogram of both breasts in [address] [facility] will attempt to contact patient to return for supplemental views and ultrasound if indicated. Patient should continue monthly self-breast exams. A clinical breast exam by your physician is recommended on an annual basis. This exam should not preclude additional follow-up of suspicious palpable abnormalities. Note on Ruby scores and lifetime risk: 1. A Ruby score greater than 3% is considered moderate risk. If this is the case, consider specialist referral to assess eligibility for a risk reducing agent. 2. If overall lifetime risk for the development of breast cancer is 20% or higher, the patient may qualify for future screening with alternating mammogram and breast MRI. [facility], , 01/07/2025 4:24 PM. Electronically signed and approved by: Wilber Ureña DO
== END | disposition home or self-care (01) ==
LOC: RADMAMWWP 14:00
PROVIDERS: ATTEND Family Medicine
DX: Z12.31 Encounter for screening mammogram for malignant neoplasm of breast (principal); R92.323 Mammographic fibroglandular density, bilateral breasts; Z78.0 Asymptomatic menopausal state; Z80.41 Family history of malignant neoplasm of ovary
CPT/HCPCS: 77063; 77067

== ENCOUNTER → 2025-01-15 | Outpatient (CLI) | payer MEDICARE ==
[2025-01-15 14:01] VITALS: BP 125/82; PULSE 77; RESP 16
--- NOTE | 2025-01-15 14:39 | P.PAINPG ---
PQRS Measure Charge Sheet Comment: HISTORY OF PRESENT ILLNESS: A 74 yr old female presents today w severe and chronic LBP > 5 yrs secondary to failed post L L4 hemilaminectomy for evaluation s/p BL MBB L3-L4/ L5-S1 #1. Pt states she experienced 90 % pain relief x 8 hrs s/p procedure. Pt states pain level is provoked at 7 /10 in intensity, constant, localized in the lumbar spine, predominantly axial, achy in character without shooting pain. Pain is provoked by over activity and PT x 5 wks which is causing intractable pain. She also cannot afford the out of pocket costs of PT any longer. Pain is alleviated by PT x 5 wks (Jul - Aug 2024), physician guided home stretching regimen daily since Aug 2024, medications, heat, ice, manual massage, repositioning and rest . Oswestry axial pain score of 33. Interventional procedures include L MBB L3-L4/ L5-S1 x1 Medications include Aleve, Ibu REVIEW OF ORGAN SYSTEMS: CONSTITUTIONAL: No fevers or chills. No recent weight loss. NEUROLOGICAL: + numbness and tingling along the distal extremities. No seizure disorders or headaches. MUSCULOSKELETAL: + pain PSYCHIATRIC: Denies current depression or suicidal thoughts. Physical Examinations : Constitutional : Cooperative , not in acute distress . Neurologic : Cranial nerve II to XII intact. No focal neurological deficits. Psychiatric : alert & oriented x 3. Matching mood & appropriate affect. Judgment & insight intact. Musculoskeletal : Cervical Spine Motor strength in the deltoid and biceps: Normal right side. Normal Left side Motor strength biceps and the wrist extensors: Normal right side . Normal left side Motor strength in the triceps muscle: Normal right side. Normal left side Deep tendon reflexes: Normal at the biceps. Normal at Brachioradialis. Normal at triceps Vertebral body tenderness to deep palpation over Cervical facet loading test: positive bilaterally Spurling test: positive bilaterally Neck distraction test: positive bilaterally Ivett sign: positive bilaterally Lumbar spine Motor strength lower extremities ,thigh and legs 5/5 Right side , 5/5 Left side Deep tendon reflexes : Normal Knee Jerk. Normal Ankle Jerk Vertebral body tenderness over L4 Cherry Test positive BL L3-L4/ L5-S1 Lumbar facet Loading Test: positive Right / positive Left L3-L4, L5-S1 Range of motion of the lumbar spine Flexion 30 degrees, extension 10 degrees Straight Leg Raise test: Left/ Right positive at degrees Wild test: positive right / positive left. Severe tenderness over the Sacroiliac joint on the Right / Left sides Gaenslen test: positive bilaterally Seated flexion test: positive bilaterally. Sacral spine : Severe tenderness over the Sacroiliac joint: right side / left side Range of motion: Flexion of the lumbar spine <60 degrees Range of motion: Extension of the lumbar spine <20 degrees Gaenslen's Test positive Wild test: positive right side / left side Thigh Thrust Test Sacral Thrust Test Imaging: X ray lumbar spine from 08/04/24 reviewed MRI non contrast lumbar spine from 09/24/24 reviewed Assessment/ Plan : failed post L L4 hemilaminectomy Recommendation of BL MBB L3-L4/ L5-S1 #2. Risks, benefits of procedure discusse d and patient verbalized understanding. Minimal anesthesia including Fentanyl and Versed if clinically indicated. All questions answered. I have spent greater than 30 minutes on patient care today. Dr Mcfadden was available by phone for the evaluation of this patient. The time was used to review the medical records including relevant urine studies and Prescription history (MAPs), review of the available imaging, evaluation and examination of the patient, coordination of care with the medical staff and if applicable referring physicians, as well as creation of the medical record - Pain Location Bilateral Lower Back Non-Pharmacological Interventions: Heat, Home Exercise, Ice, Inactivity, Physical Therapy, Position/Reposition, Relaxation Technique, Sitting, Stretching Pharmacological Interventions: Block, Epidural, PRN Medication, Scheduled Medication, Topical Medication PQRS Narrative: Smoking Status Former smoker Hx Alcohol Use (MH) No Home Medications: Ambulatory Orders Vit C/E/Zn/Coppr/Lutein/Zeaxan [Preservision Areds 2 Softgel] 1 each PO DAILY 07/07/20 Citalopram Hydrobromide [Citalopram HBr] 20 mg PO DAILY 02/16/23 Cyanocobalamin (Vitamin B-12) [Vitamin B-12] 1,000 mcg PO DAILY 02/16/23 Multivitamins, Thera [Multivitamin (formulary)] 1 tab PO DAILY 02/16/23 valACYclovir HCL [Valtrex] 500 mg PO DAILY PRN 02/16/23 Fish Oil (Unknown Dose) 1 tab PO BID 12/04/24 Magnesium (Unknown Dose) 1 tab PO HS 12/04/24 Melatonin (Unknown Dose) 1 tab PO HS 12/04/24 Vitamin C (Unknown Dose) 1 tab PO DAILY 12/04/24 Vitamin D3 (Unknown Dose) 1 tab PO DAILY 12/04/24 Controlled Substance Measures - Controlled Substance Measures Is patient prescribed a controlled substance at discharge?: No
== END ==
LOC: PNWHC3 13:40
PROVIDERS: ATTEND Specialist
DX: M96.1 Postlaminectomy syndrome, not elsewhere classified (principal); Z88.6 Allergy status to analgesic agent; Z88.1 Allergy status to other antibiotic agents; Z88.2 Allergy status to sulfonamides; Z88.8 Allergy status to other drugs, medicaments and biological substances; Z88.5 Allergy status to narcotic agent; Z88.0 Allergy status to penicillin; Z87.891 Personal history of nicotine dependence
CPT/HCPCS: 99211